=== PATIENT | male | born 1975 | race Caucasian/White ===

== ENCOUNTER 2018-03-09 17:15 | Emergency (ER) | payer BC, MEDICAID ==
[2018-03-09] MEDS ORDERED: Lidocaine 1% with EPINEPHrine 1:100,000 50 ML MDV INFILT STA (17:42)
[2018-03-09] MEDS ORDERED: Diphtheria,Pertussis(Acell),Tetanus Vaccine 0.5 ML SDV IM ONE (17:42)
[2018-03-09] MEDS ORDERED: Bacitracin Oint 1 GM U/D Packet TOP ONE (17:42)
--- NOTE | 2018-03-09 18:17 | EDM.PDOC ---
ED HPI GENERAL MEDICAL PROBLEM - General Chief Complaint: Laceration Stated Complaint: CUT HAND ON SAW Time Seen by Provider: 03/09/18 17:40 Source of Information: Reports: Patient, RN Notes Reviewed History Limitations: Reports: No Limitations - History of Present Illness INITIAL COMMENTS - FREE TEXT/NARRATIVE: Patient presents with complaints of laceration left 5th finger. He reports he accidentally struck in left hand against a saw that was not running, had a new saw blade and developed a laceration. Tetanus up to date. - Related Data Allergies Allergy/AdvReac Type Severity Reaction Status Date / Time Penicillins Allergy Hives Verified 03/09/18 17:41 Home Meds: Home Meds NK [No Known Home Meds] 03/09/18 [History] Past Medical History Respiratory History: Reports: Sleep Apnea Dermatologic History: Reports: Cellulitis - Past Surgical History GI Surgical History: Reports: Other (See Below) Other GI Surgeries/Procedures: pyloric stenosis as a child Musculoskeletal Surgical History: Reports: Carpal Tunnel Social & Family History - Tobacco Use Smoking Status *Q: Light Tobacco Smoker Years of Tobacco use: 20 Packs/Tins Daily: 0.5 - Recreational Drug Use Recreational Drug Use: No ED ROS GENERAL - Review of Systems Review Of Systems: See Below Constitutional: Reports: No Symptoms Respiratory: Reports: No Symptoms Cardiovascular: Reports: No Symptoms Musculoskeletal: Reports: Other (left hand pain at site of laceration) Skin: Reports: Other (Laceration to left base fo 5th finger, bleeding controlled. ) Neurological: Denies: Numbness, Tingling, Weakness Psychiatric: Reports: No Symptoms Hematologic/Lymphatic: Reports: No Symptoms Immunologic: Reports: No Symptoms ED EXAM, SKIN/RASH Exam: See Below Text/Narrative:: Linden is an alert and oriented 43 year old male presenting with complaints of laceration to base of left 5th finger from a saw blade. Laceration is superficial, no muscle/tendon involvement. Exam Limited By: No Limitations General Appearance: Alert, WD/WN, No Apparent Distress Eye Exam: Bilateral Eye: EOMI, PERRL Head: Atraumatic, Normocephalic Respiratory/Chest: No Respiratory Distress, Lungs Clear, Normal Breath Sounds, No Accessory Muscle Use, Chest Non-Tender Cardiovascular: Normal Peripheral Pulses, Regular Rate, Rhythm, No Edema, No Murmur, No Rub Peripheral Pulses: 2+: Radial (L), Radial (R) Extremities: Normal Range of Motion, No Pedal Edema, Normal Capillary Refill, Other (Tenderness to site of laceration. ) Neurological: Alert, Oriented, CN II-XII Intact, Normal Cognition, Normal Gait, Normal Reflexes, No Motor/Sensory Deficits Psychiatric: Normal Affect, Normal Mood Skin: Warm, Dry, Normal Color, No Rash, Other (2 cm laceration, dorsum of left hand at base of left 5th finger. ) Location, Skin: Lower Extremity, Left Characteristics: Linear Associated features: Tenderness Lymphatic: No Adenopathy ED SKIN PROCEDURES - Laceration/Wound Repair Left Hand Lac/Wound length In cm: 2 Appearance: Linear Distal NVT: Neuro & Vascular Intact, No Tendon Injury Anesthetic Type: Local Local Anesthesia - Lidocaine (Xylocaine): 1% with EPI Local Anesthetic Volume: 1cc Skin Prep: Chlorhexidine (Hibiciens), Saline Saline Irrigation (cc's): 30 Closed with: Sutures Suture Size: 3-0 # of Sutures: 4 Suture Type: Nylon, Interrupted Sterile Dressing Applied: Nurse Tetanus Status Addressed: Yes Complications: No Course - Vital Signs Last Recorded V/S: Last Vital Signs Temp 36.6 C 03/09/18 17:39 Pulse 70 03/09/18 17:39 Resp 16 03/09/18 17:39 BP 126/88 03/09/18 17:39 Pulse Ox 96 03/09/18 17:39 - Orders/Labs/Meds Orders: Active Orders 24 hr Category Date Time Status Vaccines to be Administered [RC] PER UNIT ROUTINE Care 03/09/18 17:43 Active Meds: Medications Discontinued Medications Generic Name Dose Route Start Last Admin Trade Name Temo PRN Reason Stop Dose Admin Bacitracin 1 dose 03/09/18 17:42 03/09/18 18:14 Bacitracin Oint 1 Gm TOP 03/09/18 17:43 1 dose ONETIME ONE Administration Diphtheria/Tetanus/Acell Pertussis 0.5 ml 03/09/18 17:42 Adacel IM 03/09/18 17:43 .ONCE ONE Lidocaine/Epinephrine 4 ml 03/09/18 17:42 03/09/18 18:14 Xylocaine 1% With Epinephrine 1:100,000 INFILT 03/09/18 17:43 4 ml NOW STA Administration Departure - Departure Time of Disposition: 18:16 Disposition: Home, Self-Care 01 Condition: Good Clinical Impression: Laceration of left hand - Discharge Information *PRESCRIPTION DRUG MONITORING PROGRAM REVIEWED*: No *COPY OF PRESCRIPTION DRUG MONITORING REPORT IN PATIENT DISHA: No Instructions: Laceration Care, Adult Referrals: PCP,None [Primary Care Provider] - Forms: ED Department Discharge Additional Instructions: You have been evaluated and treated for a laceration of the left hand. Wound closed with 4 nylon sutures. They can be removed in 7 to 10 days. Keep the wound clean and dry while healing and to prevent infection. Apply a thin amount of bacitracin ointment three times a day for three days. Return for worsening, issues or concerns. - My Orders Last 24 Hours: My Active Orders 03/09/18 17:43 Vaccines to be Administered [RC] PER UNIT ROUTINE - Assessment/Plan Last 24 Hours: My Active Orders 03/09/18 17:43 Vaccines to be Administered [RC] PER UNIT ROUTINE Assessment:: Laceration left hand Plan: Patient evaluated and treated for a laceration of the left hand. Wound closed with 4 nylon sutures. Sutures can be removed in 7 to 10 days. Keep the wound clean and dry while healing and to prevent infection. Apply a thin amount of bacitracin ointment three times a day for three days. Return for worsening, issues or concerns.
== END 2018-03-09 18:26 | disposition home or self-care (01) ==
LOC: JP.ED 17:15
DX: S61.217A Laceration without foreign body of left little finger without damage to nail, initial encounter (principal); F17.210 Nicotine dependence, cigarettes, uncomplicated; W27.0XXA Contact with workbench tool, initial encounter; Z23 Encounter for immunization
CPT/HCPCS: 12001; 90471; 99283-25

== ENCOUNTER 2024-12-29 07:54 | Day surgery (SDC) | payer OTHER ==
[~2024-12-29 07:54] MED LIST: Midazolam 1 MG/ML 2 ML SDV ONE; Propofol 200 MG/20 ML SDV ONE; fentaNYL 50 MCG/ML SDV ONE
[2024-12-29] MEDS: Lactated Ringers 1,000 ML IV SCH (08:39)
== END 2024-12-29 11:00 | disposition home or self-care (01) ==
LOC: JP.SDS 07:54
PROVIDERS: ATTEND Surgery
DX: Z12.11 Encounter for screening for malignant neoplasm of colon (principal); K63.5 Polyp of colon; I10 Essential (primary) hypertension; E66.9 Obesity, unspecified; Z88.8 Allergy status to other drugs, medicaments and biological substances; Z88.0 Allergy status to penicillin
CPT/HCPCS: 00811; 45380; 45385; J2250; J2704; J3010; J7120; 88305

== ENCOUNTER 2025-02-06 07:15 | Day surgery (SDC) | payer OTHER ==
[2025-02-06] MEDS ORDERED: Propofol 200 MG/20 ML SDV ONE (07:16)
[2025-02-06] MEDS ORDERED: fentaNYL 50 MCG/ML SDV ONE (07:16)
[2025-02-06] MEDS ORDERED: Midazolam 1 MG/ML 2 ML SDV ONE (07:16)
[2025-02-06] MEDS: Lactated Ringers 1,000 ML IV SCH (08:21)
== END 2025-02-06 10:00 | disposition home or self-care (01) ==
LOC: JP.SDS 07:15
PROVIDERS: ATTEND Surgery
DX: K22.89 Other specified disease of esophagus (principal); I10 Essential (primary) hypertension; F17.200 Nicotine dependence, unspecified, uncomplicated
CPT/HCPCS: 00731; 43239; 88305; J2250; J2704; J3010; J7120

== ENCOUNTER 2025-04-20 10:50 | Emergency (ER) | payer OTHER ==
[2025-04-20 12:02] LABS: BASOPHILS ABSOLUTE AUTO 0.03 K/uL (0.00-0.10); BASOPHILS PERCENT AUTO 0.5 % (0.1-1.3); EOSINOPHILS ABSOLUTE AUTO 0.11 K/uL (0.00-0.40); EOSINOPHILS PERCENT AUTO 2.0 % (0.0-5.4); IMMATURE GRAN PERCENT AUTO 0.4 % (0.0-0.7); LYMPHOCYTES ABSOLUTE AUTO 2.31 K/uL (0.8-3.3); LYMPHOCYTES PERCENT AUTO 41.0 % (11.4-47.7); MONOCYTES ABSOLUTE AUTO 0.32 K/uL (0.20-0.90); MONOCYTES PERCENT AUTO 5.7 % (3.3-12.6); NEUTROPHILS ABSOLUTE AUTO 2.84 K/uL (1.0-7.6); NEUTROPHILS PERCENT AUTO 50.4 % (40.0-78.1); PLATELET COUNT,PLT 198 K/uL (130-375); RED BLOOD CELL COUNT 5.34 M/uL (4.14-5.76); WHITE BLOOD CELL COUNT,WBC 5.6 K/uL (3.2-11.0)
[2025-04-20 12:08] LABS: IMMATURE GRAN ABSOLUTE AUTO 0.02 K/uL (0.00-0.23)
[2025-04-20 12:19] LABS: APPEARANCE,URINE CLEAR (CLEAR); GLUCOSE,URINE NEGATIVE (NEGATIVE); OCCULT BLOOD,URINE NEGATIVE (NEGATIVE)
[2025-04-20 12:20] LABS: SQUAMOUS EPITHELIAL CELLS,UR NOT SEEN /HPF
[2025-04-20 12:25] LABS: BLOOD UREA NITROGEN,BUN 13 mg/dL (7-18); CARBON DIOXIDE,CO2 32 mmol/L (21-32); CHLORIDE,CL 102 mmol/L (100-108); CREATININE 1.0 mg/dL (0.8-1.3); ESTIMATED GFR 91 mL/min (>60); GLUCOSE RANDOM 181 mg/dL (74-106); POTASSIUM,K 3.9 mmol/L (3.6-5.2); SODIUM,NA 137 mmol/L (140-148)
== END 2025-04-20 12:52 | disposition home or self-care (01) ==
LOC: JP.ED 10:50
DX: I10 Essential (primary) hypertension (principal); E66.9 Obesity, unspecified; Z68.36 Body mass index [BMI] 36.0-36.9, adult; Z87.891 Personal history of nicotine dependence; Z88.0 Allergy status to penicillin; Z88.8 Allergy status to other drugs, medicaments and biological substances; Z79.899 Other long term (current) drug therapy
CPT/HCPCS: 36415; 80048; 81001; 84484; 85025; 93005; 99283